=== PATIENT | female | born 1980 | race Caucasian/White ===

== ENCOUNTER 2018-01-11 15:45 | Inpatient (IN) | payer OTHER ==
[~2018-01-11] VITALS: Ht 162.6 cm; Wt 81.2 kg
[2018-01-11] MEDS ORDERED: PREN-546 PO (16:40)
[2018-01-11] MEDS ORDERED: TERBUTALINE 2.5 MG TAB PO PRN (16:55)
[2018-01-11] MEDS ORDERED: NALBUPHINE 10 MG/ML AMP IVP PRN ×2 (16:55→19:20)
[2018-01-11] MEDS: TERBUTALINE 1 MG/ML VIAL SUBQ SCH ×2 (17:06→18:10)
[2018-01-11] MEDS: LACTATED RINGERS 1,000 ML IV SCH ×2 (17:07→23:11)
[2018-01-11] MEDS ORDERED: TERBUTALINE 1 MG/ML VIAL SUBQ ONE (17:09)
[2018-01-11] MEDS ORDERED: BETAMETH ACET/BETAMETH NA PH 30 MG/5 ML VIAL IM SCH (18:00)
[2018-01-11] MEDS ORDERED: BETAMETH ACET/BETAMETH NA PH 30 MG/5 ML VIAL IM ONE (18:07)
[2018-01-11] MEDS ORDERED: TERBUTALINE 2.5 MG TAB ONE (23:13)
[2018-01-12] MEDS ORDERED: NIFEdipine 10 MG CAPLF ONE (00:29)
[2018-01-12] MEDS ORDERED: NIFEdipine 10 MG CAPLF PO SCH ×2 (01:00→04:00)
[2018-01-12] MEDS ORDERED: AMPICILLIN 2,000 MG VIAL ONE (01:13)
[2018-01-12 02:15] LABS: BARBITURATE, URINE NEG. ng/ml (NEG <=200); BENZODIAZEPINE, URINE NEG. ng/mL (NEG <=200); CANNABINOID, URINE NEG. ng/mL (NEG <=50); COCAINE, URINE NEG. ng/mL (NEG <=300); OPIATE, URINE NEG. ng/mL (NEG <=2000); PHENCYCLIDINE SCREEN,URINE NEG. ng/mL (NEG <=25)
[2018-01-12 02:30] LABS: PROTHROMBIN TIME 9.3 secs (10.8-13.4)
[2018-01-12 02:44] LABS: ALBUMIN 2.6 g/dL (3.4-5.0); CARBON DIOXIDE 19.7 mmol/L (21-32); CREATININE 0.7 mg/dL (0.6-1.3); POTASSIUM 3.7 mmol/L (3.5-5.1); TOTAL BILIRUBIN 0.5 mg/dL (0.0-1.0)
[2018-01-12 02:52] LABS: APPEARANCE,URINE CLEAR (CLEAR); BILIRUBIN,URINE NEGATIVE (NEGATIVE); BLOOD, URINE NEGATIVE (NEGATIVE); COLOR,URINE YELLOW (YELLOW); LEUKOCYTE ESTERASE ,URINE NEGATIVE (NEGATIVE); NITRITE, URINE NEGATIVE (NEGATIVE); UGLUCOSE NEGATIVE (NEGATIVE)
[2018-01-12 02:57] LABS: HEMOGLOBIN 12.8 g/dL (12.0-16.0); MEAN CORPUSCULAR HEMOGLOBIN 33 pg (27-31); MEAN CORPUSCULAR HGB CONC 34 g/dL (33-37); MEAN CORPUSCULAR VOLUME 98.3 fL (80-94); PLATELET COUNT (AUTO) 199 K/uL (140-450); RED BLOOD CELL COUNT(AUTO) 3.86 MIL/uL (4.20-5.40); RED CELL DISTRIBUTION WIDTH 13.3 % (11.6-13.7); WHITE BLOOD COUNT (AUTO) 9.5 K/uL (4.8-10.8)
[2018-01-12 02:58] LABS: BASOPHILS % (AUTO) 0.1 % (0.0-2.0); EOSINOPHILS % (AUTO) 0.1 % (0.0-4.0); LYMPHOCYTES # (AUTO) 0.8 K/uL (2.5-16.5); LYMPHOCYTES % (AUTO) 8.1 % (20.5-51.1); MONOCYTES # (AUTO) 0.1 K/uL (0.8-1.0); MONOCYTES % (AUTO) 1.2 % (1.7-9.3); NEUTROPHILS # (AUTO) 8.6 K/uL (1.8-7.7); NEUTROPHILS % (AUTO) 90.5 % (42.2-75.2)
[2018-01-13 08:55] LABS: RAPID PLASMA REAGIN NON-REACTIVE (Non Reactiv)
== END 2018-01-12 04:02 | disposition left against medical advice (07) | DRG 560 ==
LOC: MLD 15:45
PROVIDERS: ADMIT Obstetrics & Gynecology; ATTEND Obstetrics & Gynecology
DX: O80 Encounter for full-term uncomplicated delivery (principal); Z3A.36 36 weeks gestation of pregnancy
CPT/HCPCS: 36415; 76805; 80053; 80305; 81003; 85025; 85379; 85384; 85610; 85730; 86592; 86886; 86900; 86901; J0290; J0702; J3105; J7120; Q0092